=== PATIENT | female | born 1950 | race Caucasian/White ===

== ENCOUNTER → 2022-10-23 | Outpatient (CLI) | payer MEDICARE, SELFPAY ==
--- NOTE | 2022-10-23 11:26 | US_ITS ---
STUDY: RENAL ULTRASOUND - COMPLETE REASON FOR EXAM: Female, 71 years old. UTI TECHNIQUE: Ultrasound evaluation of the kidneys was performed with real-time and static santoyo-scale imaging. COMPARISON: None. FINDINGS: RIGHT KIDNEY: Normal location of the right kidney, which is normal in size. The right kidney measures 9.7 cm x 5.3 cm x 4.8 cm. There is a normal cortex of the right kidney. The renal cortex measures 1.3 cm. There is a 1.9 cm x 1.2 cm x 1.3 cm right renal cyst. There are no right renal calculi. There is no right hydronephrosis. DISTAL RIGHT URETER: There is non-visualization of the distal right ureter. There is no demonstrated right ureterovesical junction calculus. There is a visualized right ureteral jet. LEFT KIDNEY: Normal location of the left kidney, which is normal in size. The left kidney measures 10.4 cm x 4.7 cm x 4.8 cm. There is a normal cortex of the left kidney. The renal cortex measures 1.4 cm. Multiple cysts are seen. The largest measures 1.6 cm by 1.4 cm x 1.5 There are no left renal calculi. There is no left hydronephrosis. DISTAL LEFT URETER: There is non-visualization of the distal left ureter. There is no demonstrated left ureterovesical junction calculus. There is a visualized left ureteral jet. BLADDER: The distended urinary bladder has a volume of 362 ml. There is a normal wall thickness of the distended urinary bladder. There is no demonstrated mass within the urinary bladder. There are no demonstrated bladder calculi. US/Kidney and Bladder IMPRESSION: Bilateral renal cysts. Electronically Signed: Jalen Amaya MD at 12:32 EST ,
== END | disposition home or self-care (01) ==
LOC: US 11:24
PROVIDERS: PCP Family Medicine; Referring Provider Urology; Visit Provider Urology
DX: N39.0 Urinary tract infection, site not specified (principal)
CPT/HCPCS: 76770